=== PATIENT | female | born 1960 | race Caucasian/White ===

== ENCOUNTER → 2017-06-18 19:49 | Outpatient (CLI) | payer BC, SELFPAY | PROVIDERS: Family Provider Family Medicine; PCP Family Medicine; Visit Provider Obstetrics & Gynecology | DX: N89.8 Other specified noninflammatory disorders of vagina (principal) | CPT/HCPCS: 87070; 87077; 87205 ==

== ENCOUNTER → 2017-09-23 14:23 | Outpatient (CLI) | payer BC, SELFPAY ==
--- NOTE | 2017-09-23 14:27 | BI_ITS ---
MAMMOGRAPHY - BILATERAL SCREENING REASON FOR EXAM: Female, 56 years old. Routine annual screening examination. PERTINENT HISTORY: Non-contributory. TECHNIQUE: Digital bilateral breast crow (3D mammographic acquisition) in the CC and MLO projections. 2-D mediolateral oblique (MLO) and craniocaudad (CC) views of both breasts were obtained. CAD: Full Field Digital Mammography with Computer Added Detection was performed. COMPARISON: Comparison is made with prior study dated August 31, 2016 and August 14, 2015. FINDINGS: Breast Composition: The breasts are heterogeneously dense, which may obscure small masses. There are no dominant masses or suspicious calcifications. No other significant abnormalities are identified. There has been no significant change since the prior study. BI/SCREENING MAMM (CAD), BILAT IMPRESSION: Stable bilateral screening mammogram. Yearly follow-up mammogram recommended. (A) ASSESSMENT CATEGORY: BIRADS Category 1: Negative. A letter regarding these results will be sent to the patient by the facility within 30 days. Approximately 10% of breast cancers are not detected by mammography. A normal mammogram should not delay biopsy of a clinically suspicious abnormality. [id number] Electronically Signed: Ash Tenorio MD at 10:17 EDT Tel [phone], Service support ,
== END ==
PROVIDERS: Family Provider Family Medicine; PCP Family Medicine; Visit Provider Obstetrics & Gynecology
DX: Z12.31 Encounter for screening mammogram for malignant neoplasm of breast (principal)
CPT/HCPCS: 77063; 77067

== ENCOUNTER → 2018-08-17 16:42 | Outpatient (CLI) | payer BC, SELFPAY ==
[2018-08-17 08:06] VITALS: BMI 23.3
[2018-08-17 19:43] LABS: Chlamydia Trachomatis by PCR Negative (Negative); Neisserai gonorrhoeae by PCR Negative (Negative); Probe Check PASS; Sample Adequacy Control PASS; Specimen Processing Control PASS
== END ==
PROVIDERS: Family Provider Family Medicine; PCP Family Medicine; Referring Provider Nurse Practitioner Women's Health; Visit Provider Nurse Practitioner Women's Health
DX: Z11.3 Encounter for screening for infections with a predominantly sexual mode of transmission (principal)
CPT/HCPCS: 87491; 87591

== ENCOUNTER → 2018-08-18 10:52 | Outpatient (CLI) | payer BC, SELFPAY ==
[2018-08-17 08:06] VITALS: BMI 23.3
--- NOTE | 2018-08-18 10:53 | US_ITS ---
STUDY: ULTRASOUND OF THE FEMALE PELVIS - COMPLETE REASON FOR EXAM: Female, 57 years old. Postmenopausal bleeding LMP: Ablation April 2017 TECHNIQUE: TECHNICAL QUALITY: Adequate. COMPARISON: May 03, 2017 FINDINGS: The uterus is retroverted visualized small fibroid measuring 5.6 x 5.6 mm. There is a fundal fibroid measuring 1.4 x 1.2 x 1.2 cm. and is in a midline position. The uterus measures 6.9 x 5.1 x 4.2 cm. There is a Nabothian cyst of the cervix. The endometrium measures 10 mm in thickness, and is hyperechoic. There is no demonstrated endometrial mass. There is a I.U.D. - The patient does not have an I.U.D. The right ovary is visualized. The right ovary measures 1.9 x 1.3 x 1 point cm. There is no right ovarian cyst or ovarian mass. There is no visualized right adnexal mass or complex lesion. There is normal arterial and normal venous vascularity. The left ovary is not visualized. There is no fluid in the cul-de-sac. The transabdominal images show a distended bladder 705.6 Polycystic ovary disease: No. US/Pelvic (Non ) IMPRESSION: Postmenopausal bleeding. Greater than 6 mm endometrium is considered abnormal in a patient with postmenopausal bleeding. Consider endometrial hyperplasia. Small peripheral to the endometrium fundal fibroids. Retroverted uterus. Nabothian cysts. Electronically Signed: Mami Hernandez MD at 12:19 EDT Tel , Service support ,
--- NOTE | 2018-08-18 10:53 | US_ITS ---
STUDY: ULTRASOUND OF THE FEMALE PELVIS - COMPLETE REASON FOR EXAM: Female, 57 years old. Postmenopausal bleeding LMP: Ablation April 2017 TECHNIQUE: TECHNICAL QUALITY: Adequate. COMPARISON: May 03, 2017 FINDINGS: The uterus is retroverted visualized small fibroid measuring 5.6 x 5.6 mm. There is a fundal fibroid measuring 1.4 x 1.2 x 1.2 cm. and is in a midline position. The uterus measures 6.9 x 5.1 x 4.2 cm. There is a Nabothian cyst of the cervix. The endometrium measures 10 mm in thickness, and is hyperechoic. There is no demonstrated endometrial mass. There is a I.U.D. - The patient does not have an I.U.D. The right ovary is visualized. The right ovary measures 1.9 x 1.3 x 1 point cm. There is no right ovarian cyst or ovarian mass. There is no visualized right adnexal mass or complex lesion. There is normal arterial and normal venous vascularity. The left ovary is not visualized. There is no fluid in the cul-de-sac. The transabdominal images show a distended bladder 705.6 Polycystic ovary disease: No. US/Transvaginal Non- IMPRESSION: Postmenopausal bleeding. Greater than 6 mm endometrium is considered abnormal in a patient with postmenopausal bleeding. Consider endometrial hyperplasia. Small peripheral to the endometrium fundal fibroids. Retroverted uterus. Nabothian cysts. Electronically Signed: Mami Hernandez MD at 12:19 EDT Tel , Service support ,
== END ==
PROVIDERS: Family Provider Family Medicine; PCP Family Medicine; Referring Provider Nurse Practitioner Women's Health; Visit Provider Nurse Practitioner Women's Health
DX: N95.0 Postmenopausal bleeding (principal)
CPT/HCPCS: 76830; 76856; 93976

== ENCOUNTER → 2019-01-09 15:37 | Outpatient (CLI) | payer BC, SELFPAY ==
[2018-08-17 08:06] VITALS: BMI 23.3
--- NOTE | 2019-01-09 15:41 | RAD_ITS ---
STUDY: X-RAY - LEFT FOOT CLINICAL: Lateral sided foot pain for one week with worsening. TECHNIQUE: 3 view(s) of the foot. COMPARISON: None. FINDINGS: Normal talus, calcaneus, and tarsal bones. Normal visualized subtalar, talonavicular, calcaneocuboid, tarsal and tarsometatarsal articulations. Normal metatarsi. There are marginal osteophytes and joint space narrowing of the metatarsophalangeal joint of the great toe. Normal tibial and fibular sesamoid bones. Normal interphalangeal joint of the great toe. Normal phalanges of the great toe. Normal second through fifth metatarsophalangeal joints. Normal interphalangeal joints and phalanges of the lesser toes. The soft tissue structures are unremarkable. RAD/Foot min 3 Views IMPRESSION: Arthrosis of the first metatarsophalangeal joint. Electronically Signed: Antwan Smith MD at 12:14 EDT Tel , Service support ,
== END ==
PROVIDERS: Family Provider Family Medicine; PCP Family Medicine; Referring Provider Family Medicine; Visit Provider Family Medicine
DX: M79.672 Pain in left foot (principal)
CPT/HCPCS: 73630

== ENCOUNTER → 2019-01-10 09:48 | Outpatient (CLI) | payer BC, SELFPAY ==
[2018-08-17 08:06] VITALS: BMI 23.3
[2019-01-10 12:10] LABS: Absolute Lymphocyte Count 1.74 X10^3/uL (0.83-4.51); Absolute Neutrophil Count 2.5 X10^3/uL (2.0-7.7); Basophil# 0.03 X10^3/uL; Basophil% 0.6 % (0-1); Eosinophil# 0.05 X10^3/uL; Eosinophils% 1.1 % (0-5); Hematocrit 46.3 % (37-47); Hemoglobin 15.1 g/dL (12.0-15.0); Lymphocyte # 1.74 X10^3/ul (4.0); Lymphocyte % 37.5 % (19-41); Mean Corp Hgb Conc 32.6 g/dL (32-36); Mean Corpuscular Hgb 29.9 pg (27.0-32.0); Mean Corpuscular Volume 91.7 fL (81-99); Mean Platelet Vol. 9.3 fl (6.2-12.0); Monocyte# 0.36 X10^3/uL; Monocyte% 7.8 % (0-10); NRBC Flagged by Analyzer 0 % (0-5); Neutrophil # 2.45 X10^3/uL (2.7-7.7); Neutrophil % 52.8 % (47-70); Platelet Count 219 K/mm3 (150-450); RBC Distribution Width CV 12.6 % (11.6-14.6); RBC Distribution Width SD 42.2 fl (35.1-43.9); Red Blood Count 5.05 M/mm3 (4.2-5.4); White Blood Count 4.6 K/mm3 (4.4-11.0)
[2019-01-10 12:51] LABS: Anion Gap 6 (5-15); BUN 10 mg/dL (7-18); Calcium,Total 8.9 mg/dL (8.5-10.1); Chloride 106 mmol/L (98-107); Cholesterol 261 mg/dL (200); Creatinine, Serum 0.77 mg/dL (0.55-1.02); EST Glomerular Filtration Rate 83 mL/min (>60); Est Glom Filt Rate - Afr Amer 100 mL/min (>60); Glucose 81 mg/dL (74-106); High Density Lipoprotein 75 mg/dL; Potassium 4.2 mmol/L (3.5-5.1); Sodium Level 139 mmol/L (136-145); Thyroid Stim Hormone (TSH) 3.18 uIU/mL (0.358-3.74); Triglycerides 129 mg/dL; Very Low Density Lipoprotein 26 mg/dL (5-40)
== END ==
PROVIDERS: Family Provider Family Medicine; PCP Family Medicine; Referring Provider Nurse Practitioner Family; Visit Provider Nurse Practitioner Family
DX: Z00.00 Encounter for general adult medical examination without abnormal findings (principal); E03.9 Hypothyroidism, unspecified; R53.83 Other fatigue; Z13.220 Encounter for screening for lipoid disorders
CPT/HCPCS: 36415; 80048; 80061; 84443; 85025

== ENCOUNTER → 2019-03-27 12:35 | Outpatient (CLI) | payer BC, SELFPAY ==
[2018-08-17 08:06] VITALS: BMI 23.3
[2019-03-27 14:14] LABS: Hemoglobin 15.3 g/dL (12.0-15.0); Mean Corp Hgb Conc 32.6 g/dL (32-36); Mean Corpuscular Hgb 30.2 pg (27.0-32.0); Mean Corpuscular Volume 92.7 fL (81-99); Mean Platelet Vol. 9.3 fl (6.2-12.0); Platelet Count 235 K/mm3 (150-450); RBC Distribution Width CV 12.3 % (11.6-14.6); RBC Distribution Width SD 42.2 fl (35.1-43.9); Red Blood Count 5.07 M/mm3 (4.2-5.4); White Blood Count 5.6 K/mm3 (4.4-11.0)
[2019-03-27 14:53] LABS: Thyroid Stim Hormone (TSH) 2.21 uIU/mL (0.358-3.74)
== END ==
PROVIDERS: Family Provider Family Medicine; PCP Family Medicine; Referring Provider Family Medicine; Visit Provider Family Medicine
DX: E03.9 Hypothyroidism, unspecified (principal); M54.2 Cervicalgia
CPT/HCPCS: 36415; 84439; 84443; 85027

== ENCOUNTER → 2019-04-14 15:07 | Outpatient (CLI) | payer BC, SELFPAY ==
[2018-08-17 08:06] VITALS: BMI 23.3
--- NOTE | 2019-04-14 15:18 | BI_ITS ---
MAMMOGRAPHY - BILATERAL SCREENING 3-D TOMOSYNTHESIS REASON FOR EXAM: Female, 58 years old. PERTINENT HISTORY: No significant family history. TECHNIQUE: 2-D mammograms and 3-D Tomosynthesis of the breast (s) were performed. CAD was performed. COMPARISON: September 23, 2017 FINDINGS: The breast composition is heterogeneous in appearance which may obscure tiny lesions. No dense spiculated masses or suspicious microcalcifications are identified. No architectural distortion is identified. There is no skin thickening or retraction. There has been no significant change since the prior study of September 23, 2017 BI/SCREEN MAMM (CAD) W/MEDHAT BILAT IMPRESSION: No mammographic signs of malignancy. Routine yearly mammograms recommended. ASSESSMENT CATEGORY: BIRADS Category 1: Negative. A letter regarding these results will be sent to the patient by the facility within 30 days. FOLLOW UP RECOMMENDATION: Yearly follow up mammogram recommended. (A) Approximately 10% of breast cancers are not detected by mammography. A normal mammogram should not delay biopsy of a clinically suspicious abnormality. Electronically Signed: Patricio Rivers, at 8:02 EST Tel , Service support ,
== END ==
PROVIDERS: Family Provider Family Medicine; PCP Family Medicine; Referring Provider Obstetrics & Gynecology; Visit Provider Obstetrics & Gynecology
DX: Z12.31 Encounter for screening mammogram for malignant neoplasm of breast (principal)
CPT/HCPCS: 77063; 77067

== ENCOUNTER → 2019-07-27 15:43 | Outpatient (CLI) | payer BC, SELFPAY ==
[2019-07-27 13:20] VITALS: BMI 23.3
[2019-08-04 11:17] LABS: HPV APTIMA, High Risk Negative (Negative)
== END ==
PROVIDERS: PCP Family Medicine; Referring Provider Nurse Practitioner Women's Health; Visit Provider Nurse Practitioner Women's Health
DX: Z12.4 Encounter for screening for malignant neoplasm of cervix (principal)
CPT/HCPCS: 87624; 88175; G0145

== ENCOUNTER → 2020-02-01 08:18 | Outpatient (CLI) | payer BC, SELFPAY ==
[2019-07-27 13:20] VITALS: BMI 23.3
[2020-02-01 10:15] LABS: Anion Gap 6 (5-15); BUN 14 mg/dL (7-18); BUN/Creat Ratio 19.2 RATIO (10-20); Calcium,Total 8.8 mg/dL (8.5-10.1); Chloride 106 mmol/L (98-107); Cholesterol 303 mg/dL (200); Creatinine, Serum 0.73 mg/dL (0.55-1.02); EST Glomerular Filtration Rate 87 mL/min (>60); Est Glom Filt Rate - Afr Amer 105 mL/min (>60); Glucose 94 mg/dL (74-106); High Density Lipoprotein 74 mg/dL; Potassium 3.6 mmol/L (3.5-5.1); Sodium Level 139 mmol/L (136-145); T4 Free Direct 1.47 ng/dL (0.76-1.46); Thyroid Stim Hormone (TSH) 4.04 uIU/mL (0.358-3.74); Triglycerides 159 mg/dL; Very Low Density Lipoprotein 32 mg/dL (5-40)
== END ==
PROVIDERS: PCP Family Medicine; Referring Provider Family Medicine; Visit Provider Family Medicine
DX: E03.9 Hypothyroidism, unspecified (principal); Z13.1 Encounter for screening for diabetes mellitus; Z13.220 Encounter for screening for lipoid disorders
CPT/HCPCS: 36415; 80048; 80061; 84439; 84443

== ENCOUNTER 2020-02-21 10:00 | Outpatient (RCR) | payer BC, SELFPAY ==
[2019-07-27 13:20] VITALS: BMI 23.3
--- NOTE | 2019-12-21 18:27 | HP.PTEVAL ---
Patient's Visit Information KODY TELLEZ is a 59 year old F referred to Physical Therapy by Dr. Robert Palma MD with a diagnosis of BPPV. Date of Evaluation: 12/21/19 Physical Therapist: Toby Dawkins, AJAYT, OCS, CSCS - Visit Plan Frequency: 1-2x /Week Duration: 2-4 Weeks Plan: weekly as needed x 2-4 for positional treatments and reintegration of positions. - Subjective Had dizzyness for a long time. Gets up out of bed and sometimes passes out 2x/in 2003. Gets motion sick easily. Had an episode in May when she was doing floor work exercising in different positions and was dizzy/sick and could not recover. was sick for 3 days straight. Immediately things were spinning. Went to doctor 2 days later and got eyes and ears checked. Was hard to walk going in and spinning. He tried Hallpike ann ad she vomitted. Gave meclizine and sent home. Got better over the next two days. Got off meclizine. Then she was fine until a few days ago and sat up from lying down adn got dizzy ...went upstairs and took meclizine and spun the first day and then gradually getting better. Gradually got better over the weekend. Wednesday was fine and more normal. Last dizzyness was Wednesday and it gives a MARTINEZ. Sleeping OK now. 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 This week has been katlyn except avoiding floor exercises for pilates. - Objective Walks normal and trasnitions normal today. Cervical AROM WNL and without pain. UE AROM WFL. Pt is nervous about today and high anxiety. - L hallpike ann. + R hallpike for mild dizzyness and up torsional nystagmus of 5 seconds, treated with Julia adn then gone. Slightly nauseous after session. - Balance Scores Functional Gait Assessment Score: 30 % Disability: 0 - Goals Goal 1:: abolish dizzzyness x 5 days Goal Time Frame: 4-6 Weeks Goal 2:: Head off edge of table and yoga/pilates positoons without dizzyness and confidentally. Goal Time Frame: 4-6 Weeks - Rehabilitation Potential Physical Therapy Diagnosis: BPPV Rehabilitation Potential: Good - Anticipated Interventions Patient/Client Instruction: Educate patient on: Condition, Plan of Care For the Purpose of:: To decrease pain, To improve muscle performance and motor function, To increase tolerance to activity/condition/position Therapeutic Exercise to Include: Active ROM Comment: positional treatments For the Purpose of:: To increase tolerance to activity/condition/position Thank you for the opportunity to evaluate your patient. For Medicare and Medicare HMO plans, please review the plan of care and approve it. It will need to be FAXED BACK to us at [phone] for Medicare purposes. For Medicare only, by signing this I certify the plan of care. Please let me know if there are questions or concerns regarding this plan of care. Physician Signature: Date:
--- NOTE | 2020-02-13 09:57 | HP.PT.NRP ---
KODY TELLEZ was seen in my office for initial evaluation on 12/21/19. The following Plan of Care was established for this patient: Initial Frequency: 1-2x /Week Initial Duration: 2-4 Weeks Patient/Client Instruction: Educate patient on: Condition, Plan of Care For the Purpose of:: To decrease pain, To improve muscle performance and motor function, To increase tolerance to activity/condition/position Therapeutic Exercise to Include: Active ROM For the Purpose of:: To increase tolerance to activity/condition/position This patient was last seen in our office 12/21/19. Pertinent comments regarding their Physical therapy will appear below: Pt seen one visit for BPPV treatment. She was to f/u weekly to ensure progress but neglected to schedule or attend. At this point, it has been over 6 weeks adn I will discontinue due to nonattendance. At this point I will be discontinuing this patient from physical therapy. I would be happy to see this patient again in the future if found appropriate by the physician. Thank you! Toby Dawkins, DPT, OCS, CSCS
--- NOTE | 2020-02-16 10:01 | HP.PTREVAL_ITS ---
Dr. Robert Palma MD, It has been my pleasure to treat KODY TELLEZ over the last 2 visits for BPPV. Please see the progress note below for an update on the physical therapy plan of care! Subjective: Month of December and most of January was good and did not avoid any activitiy. 100%. One week ago got some goofiness rolling in bed. Yesterday was doing floor ex lying on back and spun for 15 minutes or so. Took medicine a felt a little better. Has slight MARTINEZ today but no dizzyness. Objective/Function: Pt returns with dizzyness yesterday after being good for a month or more. + L hallpike ann and nauseous. Treated with Clarissa Dumont today and instruct in BD. Based on history and findings clinically today, she is appropri ate to reopen her current chart as she was discharged after not attending. same goals and POC as previously hopefully with compliance of attendance this time. Fair prognosis Plan Plan: weekly as needed x 2-4 for positional treatments and reintegration of positions. Goals Goal 1:: abolish dizzzyness x 5 days Goal Time Frame: 4-6 Weeks Goal 2:: Head off edge of table and yoga/pilates positoons without dizzyness and confidentally. Goal Time Frame: 4-6 Weeks Anticipated Interventions Patient/Client Instruction: Educate patient on: Condition, Plan of Care For the Purpose of:: To decrease pain, To improve muscle performance and motor function, To increase tolerance to activity/condition/position Therapeutic Exercise to Include: Active ROM Comment: positional treatments For the Purpose of:: To increase tolerance to activity/condition/position Please do not hesitate to contact me at [phone] by phone or if you have questions or concerns regarding this new plan of care! Sincerely, Toby Dawkins, DPT, OCS, CSCS
== END 2020-02-21 19:00 | disposition home or self-care (01) ==
LOC: PT 10:00
PROVIDERS: PCP Family Medicine; Referring Provider Family Medicine; Visit Provider Family Medicine
DX: H81.10 Benign paroxysmal vertigo, unspecified ear (principal)
CPT/HCPCS: 97161; 97530

== ENCOUNTER → 2020-03-15 | Outpatient (CLI) | payer BC, SELFPAY ==
[2019-07-27 13:20] VITALS: BMI 23.3
== END | disposition home or self-care (01) ==
PROVIDERS: PCP Family Medicine; Visit Provider Family Medicine
DX: Z20.828 Contact with and (suspected) exposure to other viral communicable diseases (principal)
CPT/HCPCS: 87635; U0003

== ENCOUNTER → 2020-03-21 | Outpatient (CLI) | payer BC, SELFPAY ==
[2019-07-27 13:20] VITALS: BMI 23.3
== END | disposition home or self-care (01) ==
LOC: LABSPEC 17:07
PROVIDERS: PCP Family Medicine; Referring Provider Family Medicine; Visit Provider Family Medicine
DX: U07.1 COVID-19 (principal)
CPT/HCPCS: 87635; U0003

== ENCOUNTER → 2020-04-19 09:15 | Outpatient (CLI) | payer BC, SELFPAY ==
[2019-07-27 13:20] VITALS: BMI 23.3
--- NOTE | 2020-04-19 09:17 | RAD_ITS ---
EXAM DESCRIPTION: PA and lateral CHEST CLINICAL HISTORY: 59 years Female, COUGH COUGH COMPARISON: None FINDINGS: The thorax is intact. The heart and mediastinum appear to be within normal limits. The lungs appear to be well areated without evidence of pneumonic consolidation or pleural effusion. RAD/Chest PA and Lateral IMPRESSION: Normal PA and lateral chest Electronically Signed: Robert Simmons, at 14:39 EST Tel , Service support ,
[2020-04-19 11:35] LABS: AST(SGOT) 21 U/L (15-37); Alanine Aminotransfer ALT/SGPT 24 U/L (13-56); Albumin, Serum 3.3 g/dL (3.2-5.0); Alkaline Phosphatase 74 U/L (45-117); Bilirubin, Direct 0.15 mg/dL (0.00-0.30); Cholesterol 306 mg/dL (200); Free T3 2.2 pg/mL (2.18-3.98); Globulin 4.1 g/dL (2.2-4.2); High Density Lipoprotein 76 mg/dL; Protein, Total 7.4 g/dL (6.4-8.2); T4 Free Direct 1.35 ng/dL (0.76-1.46); Thyroid Stim Hormone (TSH) 3.13 uIU/mL (0.358-3.74); Triglycerides 145 mg/dL; Very Low Density Lipoprotein 29 mg/dL (5-40)
== END ==
PROVIDERS: PCP Family Medicine; Referring Provider Family Medicine; Visit Provider Family Medicine
DX: E03.9 Hypothyroidism, unspecified (principal); E78.5 Hyperlipidemia, unspecified; R05 Cough
CPT/HCPCS: 36415; 71046; 80061; 80076; 84439; 84443; 84481

== ENCOUNTER → 2020-06-12 08:21 | Outpatient (CLI) | payer BC, SELFPAY ==
[2019-07-27 13:20] VITALS: BMI 23.3
[2020-06-12 10:20] LABS: Cholesterol 279 mg/dL (200); High Density Lipoprotein 77 mg/dL; Triglycerides 124 mg/dL; Very Low Density Lipoprotein 25 mg/dL (5-40)
== END ==
PROVIDERS: PCP Family Medicine; Referring Provider Family Medicine; Visit Provider Family Medicine
DX: E78.5 Hyperlipidemia, unspecified (principal)
CPT/HCPCS: 36415; 80061

== ENCOUNTER → 2020-06-20 07:55 | Outpatient (CLI) | payer BC, SELFPAY ==
[2019-07-27 13:20] VITALS: BMI 23.3
[2020-06-22 14:08] LABS: CHOLESTEROL TOTAL 273 mg/dL (100-199); HDL-C 70 mg/dL (>39); HDL-P TOTAL 40.6 umol/L (>=30.5); SMALL LDL-P 357 nmol/L (<=527); TRIGLYCERIDES 172 mg/dL (0-149)
[2020-06-23 07:11] LABS: INSULIN RESISTANCE SCORE 39 (<=45); LDL SIZE 21.8 nm (>20.5); LDL-C (NIH CALC) 172 mg/dL (0-99); LDL-P 1940 nmol/L (<1000)
== END ==
PROVIDERS: PCP Family Medicine; Referring Provider Family Medicine; Visit Provider Family Medicine
DX: E78.5 Hyperlipidemia, unspecified (principal)
CPT/HCPCS: 80061; 83704

== ENCOUNTER → 2020-07-29 14:32 | Outpatient (CLI) | payer BC, SELFPAY ==
[2019-07-27 13:20] VITALS: BMI 23.3
--- NOTE | 2020-07-29 14:34 | BI_ITS ---
MAMMOGRAPHY - BILATERAL SCREENING REASON FOR EXAM: Female, 59 years old. Routine annual screening examination. PERTINENT HISTORY: no fam hx of breast ca quit prog cream 04/2017 no sx current hypothyroid meds TECHNIQUE: Digital bilateral breast medhat (3D mammographic acquisition) in the CC and MLO projections. 2-D mediolateral oblique (MLO) and craniocaudad (CC) views of both breasts were obtained. CAD: Full Field Digital Mammography with Computer Added Detection was performed. COMPARISON: 04/14/2019 and 09/23/2017 FINDINGS: Breast Composition: The breasts are heterogeneously dense, which may obscure small masses. There are no dominant masses or suspicious calcifications. No other significant abnormalities are identified. BI/SCRN MAMM (CAD)W/MEDHAT BILAT IMPRESSION: Stable bilateral screening mammogram. Yearly follow-up mammogram recommended. (A) ASSESSMENT CATEGORY: BIRADS Category 2: Benign. A letter regarding these results will be sent to the patient by the facility within 30 days. Approximately 10% of breast cancers are not detected by mammography. A normal mammogram should not delay biopsy of a clinically suspicious abnormality. [id number] Electronically Signed: Wanda Dc MD at 16:34 EST Tel , Service support ,
== END ==
PROVIDERS: PCP Family Medicine; Referring Provider Nurse Practitioner Women's Health; Visit Provider Nurse Practitioner Women's Health
DX: Z12.31 Encounter for screening mammogram for malignant neoplasm of breast (principal)
CPT/HCPCS: 77063; 77067

== ENCOUNTER → 2021-04-03 15:21 | Outpatient (CLI) | payer BC, SELFPAY ==
[2021-04-03 17:43] LABS: Erythrocyte Sedimentation Rate 14 mm/hr (0-30)
[2021-04-03 17:44] LABS: Absolute Lymphocyte Count 2.51 X10^3/uL (0.83-4.51); Absolute Neutrophil Count 3.1 X10^3/uL (2.0-7.7); Basophil# 0.03 X10^3/uL; Basophil% 0.5 % (0-1); Eosinophil# 0.06 X10^3/uL; Hematocrit 46.4 % (37-47); Hemoglobin 15.5 g/dL (12.0-15.0); Lymphocyte # 2.51 X10^3/ul (0.83-4.51); Lymphocyte % 41.1 % (19-41); Mean Corp Hgb Conc 33.4 g/dL (32-36); Mean Corpuscular Hgb 29.7 pg (27.0-32.0); Mean Corpuscular Volume 88.9 fL (81-99); Mean Platelet Vol. 10.1 fl (6.2-12.0); Monocyte# 0.38 X10^3/uL; Monocyte% 6.2 % (0-10); NRBC Flagged by Analyzer 0 % (0-5); Neutrophil # 3.12 X10^3/uL (2.7-7.7); Platelet Count 266 K/mm3 (150-450); RBC Distribution Width CV 12.3 % (11.6-14.6); Red Blood Count 5.22 M/mm3 (4.2-5.4); White Blood Count 6.1 K/mm3 (4.4-11.0)
[2021-04-03 18:01] LABS: ALB/GLOB Ratio 0.8 RATIO (0.9-2.4); AST(SGOT) 24 U/L (15-37); Alanine Aminotransfer ALT/SGPT 26 U/L (13-56); Albumin, Serum 3.3 g/dL (3.2-5.0); Alkaline Phosphatase 64 U/L (45-117); Anion Gap 4 (5-15); BUN 18 mg/dL (7-18); BUN/Creat Ratio 23.7 RATIO (10-20); Calcium,Total 9.2 mg/dL (8.5-10.1); Chloride 102 mmol/L (98-107); Creatinine, Serum 0.76 mg/dL (0.55-1.02); EST Glomerular Filtration Rate 83 mL/min (>60); Est Glom Filt Rate - Afr Amer 100 mL/min (>60); Glucose 84 mg/dL (74-106); Iron 60 ug/dL (50-170); Potassium 4.1 mmol/L (3.5-5.1); Protein, Total 7.3 g/dL (6.4-8.2); Sodium Level 137 mmol/L (136-145); T4 Free Direct 1.29 ng/dL (0.76-1.46); Thyroid Stim Hormone (TSH) 2.81 uIU/mL (0.358-3.74)
[2021-04-03 18:18] LABS: Vitamin B12 414 pg/mL (211-911); Vitamin D,25 Hydroxy 31.3 ng/mL
[2021-04-07 08:07] LABS: ANTINUCLEAR ANTIBODIES DIRECT Negative (Negative)
== END ==
PROVIDERS: PCP Family Medicine; Referring Provider Family Medicine; Visit Provider Family Medicine
DX: E03.9 Hypothyroidism, unspecified (principal); R53.83 Other fatigue; L65.9 Nonscarring hair loss, unspecified
CPT/HCPCS: 36415; 80053; 82306; 82533; 82607; 83540; 84439; 84443; 85025; 85652; 86038; 87635; U0005; U0003

== ENCOUNTER 2021-07-17 07:44 | Outpatient (CLI) | payer BC, SELFPAY ==
[2021-07-17 10:36] LABS: Anion Gap 5 (5-15); BUN 12 mg/dL (7-18); BUN/Creat Ratio 16.1 RATIO (10-20); Calcium,Total 8.8 mg/dL (8.5-10.1); Chloride 107 mmol/L (98-107); Cholesterol 286 mg/dL (200); Creatinine, Serum 0.74 mg/dL (0.55-1.02); EST Glomerular Filtration Rate 85 mL/min (>60); Est Glom Filt Rate - Afr Amer 103 mL/min (>60); Glucose 91 mg/dL (74-106); High Density Lipoprotein 81 mg/dL; Potassium 4.3 mmol/L (3.5-5.1); Sodium Level 137 mmol/L (136-145); T4 Free Direct 1.46 ng/dL (0.76-1.46); Thyroid Stim Hormone (TSH) 2.39 uIU/mL (0.358-3.74); Triglycerides 76 mg/dL; Very Low Density Lipoprotein 15 mg/dL (5-40)
== END 2021-07-17 23:59 | disposition home or self-care (01) ==
LOC: MTLAB 07:45
PROVIDERS: PCP Family Medicine; Referring Provider Family Medicine; Visit Provider Family Medicine
DX: E78.5 Hyperlipidemia, unspecified (principal); E03.9 Hypothyroidism, unspecified; Z13.1 Encounter for screening for diabetes mellitus
CPT/HCPCS: 36415; 80048; 80061; 84439; 84443

== ENCOUNTER 2021-07-31 14:42 | Outpatient (CLI) | payer BC, SELFPAY ==
[2020-07-29 15:07] VITALS: BMI 24.5
--- NOTE | 2021-07-31 14:45 | BI_ITS ---
MAMMOGRAPHY - BILATERAL SCREENING REASON FOR EXAM: Female, 60 years old. Routine annual screening examination. PERTINENT HISTORY: Non-contributory. TECHNIQUE: Digital bilateral breast medhat (3D mammographic acquisition) in the CC and MLO projections. 2-D mediolateral oblique (MLO) and craniocaudad (CC) views of both breasts were obtained. CAD: Full Field Digital Mammography with Computer Added Detection was performed. COMPARISON: Comparison is made with prior study dated 07/29/2020 and 04/14/2019. FINDINGS: Breast Composition: The breasts are heterogeneously dense, which may obscure small masses. There are no dominant masses or suspicious calcifications. Stable small benign-appearing bilateral axillary nodes. No other significant abnormalities are identified. There has been no significant change since the prior study. BI/SCRN MAMM (CAD)W/MEDHAT BILAT IMPRESSION: Stable bilateral screening mammogram. Yearly follow-up mammogram recommended. (A) ASSESSMENT CATEGORY: BIRADS Category 2: Benign. A letter regarding these results will be sent to the patient by the facility within 30 days. Approximately 10% of breast cancers are not detected by mammography. A normal mammogram should not delay biopsy of a clinically suspicious abnormality. [id number] Electronically Signed: Ash Tenorio MD at 15:35 EST ,
== END 2021-07-31 23:59 | disposition home or self-care (01) ==
LOC: OPBI 14:43
PROVIDERS: PCP Family Medicine; Referring Provider Nurse Practitioner Women's Health; Visit Provider Nurse Practitioner Women's Health
DX: Z12.31 Encounter for screening mammogram for malignant neoplasm of breast (principal)
CPT/HCPCS: 77063; 77067

== ENCOUNTER → 2021-12-08 | Outpatient (CLI) | payer BC, SELFPAY ==
--- NOTE | 2021-12-08 09:57 | RAD_ITS ---
STUDY: X-RAY - RIGHT ANKLE REASON FOR EXAM: Female, 60 years old. Lateral pain and swelling following a recent fall. TECHNIQUE: 3 view(s) of the ankle. COMPARISON: None. FINDINGS: Normal visualized distal tibia and fibula. Normal medial and lateral malleoli. Normal tibiotalar articulation and ankle mortise. Normal visualized talus and calcaneus. The visualized subtalar, talonavicular, calcaneocuboid and tarsal articulations are normal. Lateral soft tissue swelling. RAD/Ankle min 3 Views IMPRESSION: Lateral soft tissue swelling. Electronically Signed: Ash Tenorio MD at 12:56 EDT ,
--- NOTE | 2021-12-08 09:57 | RAD_ITS ---
STUDY: X-RAY - RIGHT FOOT CLINICAL: Female, 60 years old. Pain and swelling following an injury. TECHNIQUE: 3 view(s) of the foot. COMPARISON: 3 FINDINGS: Questionable avulsion fracture along the dorsal aspect of the talus. Normal visualized subtalar, talonavicular, calcaneocuboid, tarsal and tarsometatarsal articulations. Normal metatarsi. There is degenerative arthrosis of the metatarsophalangeal joint of the hallux with a hallux valgus deformity. Normal tibial and fibular sesamoid bones. Normal interphalangeal joint of the great toe. Normal phalanges of the great toe. Normal second through fifth metatarsophalangeal joints. Normal interphalangeal joints and phalanges of the lesser toes. Dorsal soft tissue swelling. RAD/Foot min 3 Views IMPRESSION: Questionable tiny avulsion fracture along the dorsal aspect of the talus. Soft tissue swelling. Electronically Signed: Ash Tenorio MD at 12:58 EDT ,
== END | disposition home or self-care (01) ==
PROVIDERS: PCP Family Medicine; Referring Provider Family Medicine; Visit Provider Family Medicine
DX: M25.571 Pain in right ankle and joints of right foot (principal); M25.572 Pain in left ankle and joints of left foot
CPT/HCPCS: 73610; 73630

== ENCOUNTER → 2022-08-03 | Outpatient (CLI) | payer OTHER, SELFPAY ==
--- NOTE | 2022-08-03 13:43 | BI_ITS ---
MAMMOGRAPHY - BILATERAL SCREENING 3-D TOMOSYNTHESIS REASON FOR EXAM: Female, 61 years old. Routine screening PERTINENT HISTORY: No significant family history. TECHNIQUE: 2-D mammograms and 3-D Tomosynthesis of the breast (s) were performed. CAD was performed. COMPARISON: 07/29/2020 FINDINGS: The breast composition is composed of scattered fibroglandular density. Scattered benign calcifications are seen. No dense spiculated masses or suspicious microcalcifications are identified. No architectural distortion is identified. There is no skin thickening or retraction. There has been no significant change since the prior study. BI/SCRN MAMM (CAD)W/MEDHAT BILAT IMPRESSION: No mammographic signs of malignancy. Routine yearly mammograms recommended. ASSESSMENT CATEGORY: BIRADS Category 1: Negative. A letter regarding these results will be sent to the patient by the facility within 30 days. FOLLOW UP RECOMMENDATION: Yearly follow up mammogram recommended. (A) Approximately 10% of breast cancers are not detected by mammography. A normal mammogram should not delay biopsy of a clinically suspicious abnormality. Electronically Signed: Aniket Kumar MD at 14:32 EDT ,
[2022-08-12 12:55] LABS: HPV APTIMA, High Risk Negative (Negative)
== END | disposition home or self-care (01) ==
PROVIDERS: PCP Family Medicine; Visit Provider Obstetrics & Gynecology
DX: Z12.31 Encounter for screening mammogram for malignant neoplasm of breast (principal)
CPT/HCPCS: 77063; 77067; 87624; 88175; G0145

== ENCOUNTER → 2022-08-18 | Outpatient (CLI) | payer OTHER, SELFPAY ==
--- NOTE | 2022-08-18 12:51 | RAD_ITS ---
EXAM: XR RIGHT HIP WITH PELVIS WHEN PERFORMED, 1 VIEW CLINICAL INDICATION: PAIN TECHNIQUE: Frontal view of the right hip with pelvis when performed. This report was created using [employer] report generation technology. COMPARISON: None. FINDINGS: BONES/JOINTS: Mild degenerative changes involving the bilateral hip joints. Mild degenerative changes pubic symphysis. Sacroiliac joint is unremarkable. No acute or healing fracture or malalignment. No other unusual lytic or sclerotic lesions of bone. SOFT TISSUES: Tiny phlebolith of the right inferior pelvis. No soft tissue swelling or gas. VASCULATURE: Tiny vascular calcifications in the pelvis. RAD/HIP, UNI W/ Pelvis 2-3 Views IMPRESSION: 1. Mild degenerative changes at the right hip joint. 2. No acute or healing fracture or malalignment. Electronically Signed: Jamin Morales MD at 4:49 EDT ,
--- NOTE | 2022-08-18 12:51 | RAD_ITS ---
STUDY: X-RAY - LUMBOSACRAL SPINE REASON FOR EXAM: Female, 61 years old. Pain. TECHNIQUE: 6 view(s) of the lumbosacral spine, including lateral flexion and extension views, were obtained. COMPARISON: December 2016. FINDINGS: Mild osteopenia. Normal lumbar lordosis. There is no substantial scoliosis. There is normal alignment of the vertebrae. Limited flexion and extension with no abnormal motion. Diffuse facet sclerosis. Slight progression of the intervertebral disc space narrowing at L2-3 and L3-4 with osteophytes. Normal bilateral sacral ala, sacroiliac joints, and visualized sacrum. Normal visualized soft tissue structures. RAD/L/S Spine w Bend Min 6 Vw IMPRESSION: Osteopenia with limited flexion and extension and no abnormal motion. Slight progression of the lower lumbar spondylosis. No acute abnormality, evidence of erosive changes/fusion. Electronically Signed: Wojciech Magallon, at 13:29 EDT ,
== END | disposition home or self-care (01) ==
LOC: MTRAD 12:50
PROVIDERS: PCP Family Medicine; Referring Provider Family Medicine; Visit Provider Family Medicine
DX: M25.551 Pain in right hip (principal)
CPT/HCPCS: 72114; 73502

== ENCOUNTER → 2023-02-18 | Outpatient (CLI) | payer OTHER, SELFPAY ==
[2023-02-18 15:37] LABS: Anion Gap 5 (5-15); BUN 11 mg/dL (7-18); Chloride 103 mmol/L (98-107); Creatinine, Serum 0.78 mg/dL (0.55-1.02); EST Glomerular Filtration Rate 79 mL/min (>60); Est Glom Filt Rate - Afr Amer 96 mL/min (>60); Glucose 82 mg/dL (74-106); Potassium 3.9 mmol/L (3.5-5.1); Sodium Level 136 mmol/L (136-145); T4 Free Direct 1.27 ng/dL (0.76-1.46); Thyroid Stim Hormone (TSH) 6.53 uIU/mL (0.358-3.74)
== END | disposition home or self-care (01) ==
PROVIDERS: PCP Family Medicine; Referring Provider Family Medicine; Visit Provider Family Medicine
DX: E03.9 Hypothyroidism, unspecified (principal); R63.5 Abnormal weight gain
CPT/HCPCS: 36415; 80048; 84439; 84443

== ENCOUNTER → 2023-11-09 | Outpatient (CLI) | payer OTHER, SELFPAY ==
--- NOTE | 2023-11-09 11:15 | RAD_ITS ---
STUDY: X-RAY - LUMBAR SPINE REASON FOR EXAM: Female, 62 years old. LUMBAGO TECHNIQUE: 4 view(s) of the lumbar spine were obtained. COMPARISON: Lumbar spine x-ray dated August 18, 2022 FINDINGS: Normal lumbar lordosis. Minimal levoscoliosis is present. There is a normal alignment of the vertebrae. The L3-L4 disc space is moderately narrowed. Mild disc space narrowing is present at L2-L3 and L4-L5. Mild multilevel endplate spurring is also present. No visualized fractures or compression deformities. The soft tissue structures are unremarkable. RAD/L/S Spine Min 4 Views IMPRESSION: Degenerative changes of the spine, as detailed above. Electronically Signed: Ezekiel Brand MD at 13:07 EDT ,
== END | disposition home or self-care (01) ==
LOC: MTRAD 11:04
PROVIDERS: PCP Family Medicine; Referring Provider Family Medicine; Visit Provider Family Medicine
DX: M54.50 Low back pain, unspecified (principal)
CPT/HCPCS: 72110

== ENCOUNTER → 2023-11-19 | Outpatient (CLI) | payer OTHER, SELFPAY ==
[2023-11-19 11:16] LABS: Anion Gap 6 (5-15); BUN 16 mg/dL (7-18); BUN/Creat Ratio 19.6 RATIO (10-20); Calcium,Total 9.1 mg/dL (8.5-10.1); Chloride 105 mmol/L (98-107); Cholesterol 302 mg/dL (200); Creatinine, Serum 0.82 mg/dL (0.55-1.02); EST Glomerular Filtration Rate 75 mL/min (>60); Est Glom Filt Rate - Afr Amer 91 mL/min (>60); Glucose 99 mg/dL (74-106); High Density Lipoprotein 66 mg/dL; Potassium 3.8 mmol/L (3.5-5.1); Sodium Level 137 mmol/L (136-145); T4 Free Direct 1.45 ng/dL (0.76-1.46); Thyroid Stim Hormone (TSH) 0.75 uIU/mL (0.358-3.74); Triglycerides 222 mg/dL; Very Low Density Lipoprotein 44 mg/dL (5-40)
== END | disposition home or self-care (01) ==
LOC: MTLAB 08:09
PROVIDERS: PCP Family Medicine; Referring Provider Family Medicine; Visit Provider Family Medicine
DX: Z13.220 Encounter for screening for lipoid disorders (principal); E03.9 Hypothyroidism, unspecified; Z13.1 Encounter for screening for diabetes mellitus
CPT/HCPCS: 36415; 80048; 80061; 84439; 84443

== ENCOUNTER → 2025-02-08 | Outpatient (CLI) | payer OTHER, SELFPAY ==
--- OUTSIDE RECORDS SUMMARY | 2025-02-08 09:13 | XMS RPT_ITS | CCD ---
Author Organization [facility] Inform ion Partnership [facility] Care Team Providers Care Lining Finisher Name Role Phone Dr. Addi Wright Primary Care Provider Dr. Addi Wright Referring Provider Dr. Michelle Perkins Attending Provider Farzaneh Wright Referring Unavailable Farzaneh Wright Attending Unavailable Kyle, Farzaneh Primary Care Unavailable Farzaneh Wright Referring Unavailable Farzaneh Wright Attending Unavailable Kyle, Farzaneh Primary Care Unavailable Kyle, Farzaneh Primary Care Unavailable Kyle, Farzaneh Referring Unavailable Farzaneh Wright Attending Unavailable Kyle, Farzaneh Primary Care Unavailable Kyle, Farzaneh Referring Unavailable Shelly Anand Attending Unavailable Kyle, Juliusophmanolo Primary Care Unavailable Kyle, Farzaneh Referring Unavailable Iam MANAGER CREDIT COLLECTIONS, Tessy Attending Unavailable KYLE, FARZANEH VIRK Referring Unavail able FARZANEH WRIGHT Primary Care Unavail Farzaneh Franco MD Primary Care Provide r Allergies Allergy Classification Reported Allergen(s) Allergy Type Date of Onset Reaction(s) Facility (3 sources) traMADol Drug Allergy 1 Vomiting [facility] (1 source) traMADol Drug Allergy 4 [facility] Repository (1 source) ALLERGIES NOT ON FILE; Translations: [ALLERGIES NOT ON FILE] Propensity to adverse reactions (disorder) [facility] 2 Repository Medications Current Medications Medication Drug Class(es) Dates Sig (Normalized) Sig (Original) estradiol 0.1 mg/ml vaginal cream (9 sources) Estrogen Start: 07-29-2020 End: 07-31-2021 Estradiol (Estrace) 0.01 % (0.1 mg/gram) cream Active 0 VAGINAL .COMPLEX 42.5 July 31, 2021 5:07pm use fingertip amount or 1-2g every night vaginally x 2 weeks, then 1-3x weekly for maintenance Start: 06-18-2017 End: 09-01-2017 Estradiol (Estrace) 0.01 % ( 0.1 mg/gram) cream Discontinued 0 VAGINAL .COMPLEX 42.5 June 18, 2017 1:00am September 01, 2017 11:00am use fingertip amount or 1-2g every night vaginally x 2 weeks, then 1-3x weekly for maintenance levothyroxine sodium 0.1 mg oral tablet (3 sources) l-Thyroxine Start: 05-12-2017 take 100 ug by mouth once daily Levothyroxine Active 100 MCG PO DAILY May 12, 2017 1:00am Completed/Discontinued Medications Medication Drug Class(es) Dates Sig (Normalized) Sig (Original) amoxicillin 500 mg oral capsule (3 sources) Penicillin-class Antibacterial Start: 09-01-2017 End: 08-17-2018 take 500 mg by mouth twice daily Amoxicillin Discontinued 500 MG PO TWICE A DAY September 01, 2017 12:00am August 17, 2018 8:08am calcium carbonate 1250 mg chewable tablet (3 sources) Start: 06-18-2017 End: 08-17-2018 take 1 tablet by mouth twice daily Calcium Carbonate (Calci-Chew) 500 mg calcium (1,250 mg) tablet,chewable Discontinued 500 MG PO TWICE A DAY June 18, 2017 1:00am August 17, 2018 8:08am cetirizine hydrochloride 10 mg oral tablet (3 sources) Histamine-1 Receptor Antagonist Start: 09-01-2017 End: 08-17-2018 take 1 tablet by mouth once daily Cetirizine (Zyrtec) 10 mg tablet Discontinued 10 MG PO daily September 01, 2017 12:00am August 17, 2018 8:08am fluocinonide 0.5 mg/ml topical cream (3 sources) Corticosteroid Start: 06-18-2017 End: 09-01-2017 Fluocinonide Discontinued 1 APPLIC TOPICAL TWICE A DAY June 18, 2017 1:00am September 01, 2017 11:00am ibuprofen 800 mg oral tablet (3 sources) Nonsteroidal Anti-inflammatory Drug Start: 05-13-2017 End: 06-18-2017 take 800 mg by mouth three times daily as needed Ibuprofen Discontinued 800 MG PO 3 TIMES DAILY NEEDED 60 May 13, 2017 1:00am June 18, 2017 11:58am metroNIDAZOLE 500 mg oral tablet (3 sources) Nitroimidazole Antimicrobial Start: 06-19-2017 End: 06-26-2017 take 1 tablet by mouth twice daily Metronidazole (Flagyl) 500 mg tablet Discontinued 500 MG PO TWICE A DAY 14 7 June 19, 2017 1:00am June 26, 2017 1:08am Multivitamin (Daily Multi-Vitamin) tablet (3 sources) Start: 06-18-2017 End: 07-27-2019 take 1 tablet by mouth once daily in the morning Multivitamin (Daily Multi-Vitamin) tablet Discontinued 1 TABLET PO EVERY MORNING June 18, 2017 1:00am July 27, 2019 2:11pm progesterone 200 mg oral capsule (3 sources) Progesterone Start: 06-18-2017 End: 09-01-2017 take 200 mg by mouth once Progesterone Micronized Discontinued 200 MG PO ONCE June 18, 2017 1:00am September 01, 2017 11:00am 24 hr venlafaxine 75 mg extended release oral capsule (3 sources) Serotonin and Norepinephrine Reuptake Inhibitor Start: 07-31-2021 End: 08-03-2022 take 1 capsule by mouth once daily Venlafaxine (Effexor Xr) 75 mg capsule,extended release 24hr Discontinued 75 MG PO DAILY July 31, 2021 1:00am August 03, 2022 3:00pm Problems Active Problems Problem Classification Problem Date Documented Date Episodic/Chronic Anxiety disorders (3 sources) Mixed anxiety and depressive disorder; Translations: [Anxiety disorder, unspecified] 07-31-2021 Chronic Disorders of lipid metabolism (3 sources) Hyperlipidemia, unspecified; Translations: [Hyperlipidemia] Onset: 12-07-2023 Chronic Menopausal disorders (3 sources) Postmenopausal bleeding; Translations: [Postmenopausal bleeding] 07-29-2020 Chronic Other female genital disorders (3 sources) Disorder of female genital system; Translations: [Unspecified condition associated with female genital organs and menstrual cycle] 06-20-2017 Episodic Other screening for suspected conditions (not mental disorders or infectious disease) (2 sources) Encounter for screening mammogram for malignant neoplasm of breast; Translations: [Encounter for screening for lipoid disorders] Onset: 12-01-2023 Episodic Thyroid disorders (4 sources) Hypothyroidism; Translations: [Hypothyroidism, unspecified] Onset: 02-23-2023 09-01-2017 Chronic Unclassified (1 source) Low back pain, unspecified; Translations: [Low back pain, unspecified] Onset: 11-18-2023 Past or Other Problems Problem Classification Problem Date Documented Da te Episodic/Chronic Unclassified (3 sources) Endometrial thickening on ultra sound 07-29-2020 Results Test Name Value Interpretation Reference Range 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: No Is patient in pain?: No Allergies tramadol Adverse Reaction (Verified 12/08/23 14:54) Vomiting Medications ???Medication ???Instructions ???Recorded ???Confirmed ???Type levothyroxine 125 mcg capsule 125 mcg PO DAILY 12/08/23 12/08/23 History Post menopausal: No Patient : No : No PFSH Medical History Melanoma Hot flashes Hypothyroidism Thickened endometrium Surgical History melanoma removed Status post dilatation and curettage Family History Father Lung cancer Mother Lung cancer Social History (Updated 12/08/23 @ 15:06 by Suellen Diaz) Smoking Status: Never smoker alcohol intake: current alcohol intake frequency: holidays/special occasions only substance use type: does not use caffeine: Yes what type of physical activity do you participate in: other details: pilates frequency: daily seatbelt use: always do you feel safe at home: Yes History 1 Elective abortions Hx Para 1 Spontaneous abortions Hx # Term Pregnancies Ectopic pregnancies Hx # Pregnancies Multiple births # of living children Past Pregnancies Del. Date Name GA/Weeks Outcome Route Bth Weight [facility] Encounter for routine gynecological examination Details: KODY TELLEZ is a 62 year old who presents for annual exam. She reports she has tried losing weight; feels that this is resistant no matter what she does. Last PAP: 08/04/2023 History of abnormal PAP: yes; ascus. Last mammogram: 07/2022 History of abnormal mammogram: none Colon cancer screening: Yes, colonoscopy; negative. Other preventative health care screenings: Dr. Bolton. ROS Const Constitutional: Denies chills, fatigue, fever(s), headache(s) or weight loss Eyes Eyes: Denies change in vision ENT ENT: Denies dizziness Resp Resp: Denies cough GI GI: Denies abdominal pain, constipation or nausea : Denies difficulty voiding, dysuria, hematuria, pelvic pain, prolapse symptoms, urinary incontinence, vaginal discharge, vaginal dryness, vaginal odor or vaginal pruritus Skin Skin/Breast: Denies alopecia, rash, breast mass, breast pain or breast skin changes Neuro Neuro: Denies dizziness Psych Psych: Denies anxiety or depression Endo Endo: Denies cold intolerance, excessive sweating or heat intolerance Exam Const General: cooperative, healthy appearing, comfortable, no acute distress, well developed and well groomed [facility] Head: normal to inspection and normocephalic Ears: hearing grossly normal bilaterally and external ears normal Nose: external nose normal Face and sinus: normal facial exam Neck Neck: normal visual inspection, full ROM and no lymphadenopathy Thyroid: thyroid normal Chest Chest palpation inspection: normal inspection of the chest Breast inspection: normal inspection of the breasts and normal inspection of the axillae Breast palpation: normal palpation of the breasts, normal palpation of the axillae and no axillary lymphadenopathy Resp Effort Inspection: normal respiratory effort GI Inspection: normal to inspection and non-distended Palpation: soft, no hepatosplenomegaly and no guarding General: bladder normal to palpation External Female Exam: normal external appearance, normal appearance of the urethra and no lesions Urethra: normal appearance of the urethra and normal palpation Speculum Exam - Vagina: normal appearance of the vagina and normal vaginal discharge Speculum Exam - Cervix: normal appearance of the cervix, no cervical discharge, no lesions and nontender Bimanual Exam- Vagina Uterus: normal bimanual exam, uterine size normal, bladder normal to palpation, No tender, uterine mobility normal, consistency normal, non-tender and no cervical motion tenderness Bimanual Exam- Adnexa, other: normal adnexae, no masses and non-tender Skin General: no rashes or lesions noted Neuro General: patient alert, moves all extremities and no focal motor deficits Extrem General: normal to inspect (more content not included)... Normal [facility] CT CARDIAC SCORING WO IV CON TRASTon 12-07-2023 CT CARDIAC SCORING WO IV CONTRAST Interpreted By: Reynaldo Adams, STUDY: CT CARDIAC SCORING WO IV CONTRAST; 12/07/2023 3:02 pm INDICATION: Signs/Symptoms:SCREENI NG. COMPARISON: Previous exam from 10/21/2021, at which time the calcium score was 0.. ACCESSION NUMBER(S): [id number] ORDERING CLINICIAN: FARZANEH WRIGHT TECHNIQUE: Using prospective ECG gating, CT scan of the coronary arteries was performed without intravenous contrast. Coronary calcium scoring was performed according to the method of Agatston. FINDINGS: The score and distribution of calcium in the coronary arteries is as follows: LM 47.94, LAD 0, LCx 0, RCA 0, Total 47.94 The visualized mid/lower ascending thoracic aorta, is normal in size, measuring 34 mm in diameter. The heart is normal in size. No pericardial effusion is present.Main pulmonary artery is normal in caliber. There is no evidence of lymphadenopathy or mass within the visualized mediastinum.The visualized esophagus is unremarkable. The visualized segments of the lungsare normally expanded. The visualized subdiaphragmatic structures demonstrate no remarkable findings. IMPRESSION: Coronary artery calcium score of 47.94 *. There has been mild but adverse interval change since the previous exam. *Coronary Artery Calcium Gated and Nongated Agatston score Score CHD Risk 0 Very low 1-99 Mildly increased 100-299 Moderately increased >300 Moderate to severely increased Chidi et al. JCCT 2016 (http://dx.doi.org/10. 1016/j.jcct.2016.11.00 3) MCCORMICK 10-Year CHD Risk with Coronary Artery Calcification can be calculated using link below [email or web address]://[email or web address]-nhlbi .org/MESACHDRisk/MesaR iskScore/RiskScore.asp x Mahi. JACC 2014 (http://dx.doi.org/10. 1016/j.j acc.2015.08.035) MACRO: None Signed by: Reynaldo Adams 12/14/2023 8:57 AM Dictation workstation: [id number] [facility] Basic Metabolic Profile (BMP )on 11-19-2023 BUN/CRE 19.6 RATIO Normal 10-20 [facility] Comment on above: Order Comment: Order Date: 11/17/23 Order Info: 0667-1 - BMP Order Info: [id number] - LIPID Order Info: 3 - TSH Order Info: 7 - T4F Performed By: #### L 501.9520, L500.2500, L500.4100, L506.0400 #### [facility] [address] [place], [address] CA,Total 9.1 mg/dL Normal 8.5-10.1 [facility] Comment on above: Order Comment: Order Date: 11/17/23 Order Info: 0667-1 - BMP Order Info: [id number] - LIPID Order Info: 3 - TSH Order Info: 7 - T4F Performed By: #### L 501.9520, L500.2500, L500.4100, L506.0400 #### [facility] [address] [place], [address] Chloride [Moles/Vol] 105 mmol/L Normal 98-107 [facility] Comment on above: Order Comment: Order Date: 11/17/23 Order Info: 0667-1 - BMP Order Info: [id number] - LIPID Order Info: 3 - TSH Order Info: 3027 - T4F Performed By: #### L 501.9520, L500.2500, L500.4100, L506.0400 #### [facility] [address] [place], [address] CO2 [Moles/Vol] 26.0 mmol/L Normal 21.0-32.0 [facility] Comment on above: Order Comment: Order Date: 11/17/23 Order Info: 666-05 - BMP Order Info: [id number] - LIPID Order Info: 3 - TSH Order Info: 7 - T4F Performed By: #### L 501.9520, L500.2500, L500.4100, L506.0400 #### [facility] [address] [place], [address] Creatinine [Mass/Vol] 0.82 mg/dL Normal 0.55-1.02 [facility] Comment on above: Order Comment: Order Date: 11/17/23 Order Info: 666-05 - BMP Order Info: - LIPID Order Info: 3015-07 - TSH Order Info: 7 - T4F Result Comment: The validity of the calculated GFR GFRAA in patients over 70 years has not been determined. Clinical correlation is essential. Performed By: #### L 501.9520, L500.2500, L500.4100, L506.0400 #### [facility] [address] [place], [address] EST GFR - AA 91 mL/min Normal >60 [facility] Comment on above: Order Comment: Order Date: 11/17/23 Order Info: 666-05 - BMP Order Info: 16050-8 - LIPID Order Info: 3015-3 - TSH Order Info: 302-7 - T4F Result Comment: Afri can Austrian GFR Calc Performed By: #### L 501.9520, L500.2500, L500.4100, L506.0400 #### [facility] [address] [place], [address] GAP 6 Normal 5-15 [facility] Comment on above: Order Comment: Order Date: 11/17/23 Order Info: 666-05 - BMP Order Info: - LIPID Order Info: 3 - TSH Order Info: 7 - T4F Performed By: #### L 501.9520, L500.2500, L500.4100, L506.0400 #### [facility] [address] [place], [address] GFR/1.73 sq M.predicted among non-blacks MDRD (S/P/Bld) [Vol rate/Area] 75 mL/min/{1.73_m2} Normal >60 [facility] Comment on above: Order Comment: Order Date: 11/17/23 Order Info: 666-05 - BMP Order Info: - LIPID Order Info: 3 - TSH Order Info: 3024-7 - T4F Result Comment: Non- GFR Calc Performed By: #### L 501.9520, L500.2500, L500.4100, L506.0400 #### [facility] [address] [place], [address] Glucose [Mass/Vol] 99 mg/dL Normal 74-106 [facility] Comment on above: Order Comment: Order Date: 11/17/23 Order Info: 666-05 - BMP Order Info: - LIPID Order Info: 3 - TSH Order Info: 30247 - T4F Performed By: #### L 501.9520, L500.2500, L500.4100, L506.0400 #### [facility] [address] [place], [address] Potassium [Moles/Vol] 3.8 mmol/L Normal 3.5-5.1 [facility] Comment on above: Order Comment: Order Date: 11/17/23 Order Info: 666-05 - BMP Order Info: - LIPID Order Info: 3 - TSH Order Info: 3024-7 - T4F Performed By: #### L 501.9520, L500.2500, L500.4100, L506.0400 #### [facility] [address] [place], [address] Sodium [Moles/Vol] 137 mmol/L Normal 136-145 [facility] Comment on above: Order Comment: Order Date: 11/17/23 Order Info: 666-05 - BMP Order Info: - LIPID Order Info: 3 - TSH Order Info: 7 - T4F Performed By: #### L 501.9520, L500.2500, L500.4100, L506.0400 #### [facility] [address] [place], [address] Urea nitrogen [Mass/Vol] 16 mg/dL Normal 7-18 [facility] Comment on above: Order Comment: Order Date: 11/17/23 Order Info: 666-05 - BMP Order Info: - LIPID Order Info: 3015-07 - TSH Order Info: 7 - T4F Performed By: #### L 501.9520, L500.2500, L500.4100, L506.0400 #### [facility] [address] [place], [address] Lipid Profileon 11-19-2023 Cholesterol [Mass/Vol] 302 mg/dL High 200 [facility] Comment on above: Order Comment: Order Date: 11/17/23 Order Info: 666-05 - BMP Order Info: 34775-4 - LIPID Order Info: 3 - TSH Order Info: 3024-7 - T4F Result Comment: <200 mg/dL Desirable 200-240 mg/dL Borderline >240 mg/dL High Risk Performed By: #### L 501.9520, L500.2500, L500.4100, L506.0400 #### [facility] [address] [place], [address] Cholesterol in HDL [Mass/Vol] 66 mg/dL Normal [facility] Comment on above: Order Comment: Order Date: 11/17/23 Order Info: 666-05 - BMP Order Info: - LIPID Order Info: 3015-07 - TSH Order Info: 3023-11 - T4F Result Comment: The drugs N-Acetylcysteine and Metamizole may falsely depress this assay. Reference Range HDL <40 mg/dL Low HDL Cholesterol HDL >or= 60 mg/dL High HDL Cholesterol Performed By: #### L 501.9520, L500.2500, L500.4100, L506.0400 #### [facility] [address] [place], [address] Cholesterol in LDL [Mass/Vol] 192 mg/dL High 0-130 [facility] Comment on above: Order Comment: Order Date: 11/17/23 Order Info: 666-05 - BMP Order Info: - LIPID Order Info: 3015-07 - TSH Order Info: 3023-11 - T4F Performed By: #### L 501.9520, L500.2500, L500.4100, L506.0400 #### [facility] [address] [place], [address] Cholesterol in VLDL [Mass/Vol] 44 mg/dL High 5-40 [facility] Comment on above: Order Comment: Order Date: 11/17/23 Order Info: 666-05 - BMP Order Info: - LIPID Order Info: 3015-07 - TSH Order Info: 3023-11 T4F Performed By: #### L 501.9520, L500.2500, L500.4100, L506.0400 #### [facility] [address] [place], [address] Triglyceride [Mass/Vol] 222 mg/dL High [facility] Comment on above: Order Comment: Order Date: 11/17/23 Order Info: 666-05 - BMP Order Info: - LIPID Order Info: 3 - TSH Order Info: 7 - T4F Result Comment: The drugs N-Acetylcysteine and Metamizole may falsely depress this assay. Serum Triglycerides Reference Interval Normal <150 mg/dL Borderline high 150 - 199 mg/dL High 200 - 499 mg/dL Very High > or = 500 mg/dL Performed By: #### L 501.9520, L500.2500, L500.4100, L506.0400 #### [facility] [address] [place], [address] T4 Free Directon 11-19-2023 T4 FREE DIRECT 1.45 ng/dL Normal 0.76-1.46 [facility] Comment on above: Order Comment: Order Date: 11/17/23 Order Info: 666-05 - BMP Order Info: [id number] - LIPID Order Info: 3015-3 - TSH Order Info: 3023-11 - T4F Performed By: #### L 501.9520, L500.2500, L500.4100, L506.0400 #### [facility] [address] [place], [address] Thyroid Stim Hormone (TSH)on 11-19-2023 TSH 0.75 uIU/mL Normal 0.358-3.74 [facility] Comment on above: Order Comment: Order Date: 11/17/23 Order Info: 666-05 - BMP Order Info: - LIPID Order Info: 63 - TSH Order Info: 7 - T4F Performed By: #### L 501.9520, L500.2500, L500.4100, L506.0400 #### [facility] [address] [place], [address] L/S Spine Min 4 Viewson 10-22 L/S Spine Min 4 Views [facility] [address] [place] [address] L/S Spine Min 4 Views MR#: [id number] Acct: [id number] Name: KODY TELLEZ Rep #: [id number] : 1960 F 62 From: Ezekiel jain MD PCP: Dr. Farzaneh Wright MD Status: REG CLI Study: L/S Spine Min 4 Views Date of Exam: 11/09/23 Exam# [id number] Ordering Dr: Farzaneh Wright [id number] STUDY: X-RAY - LUMBAR SPINE REASON FOR EXAM: Female, 62 years old. LUMBAGO TECHNIQUE: 4 view(s) of the lumbar spine were obtained. COMPARISON: Lumbar spine x-ray dated August 18, 2022 FINDINGS: Normal lumbar lordosis. Minimal levoscoliosis is present. There is a normal alignment of the vertebrae. The L3-L4 disc space is moderately narrowed. Mild disc space narrowing is present at L2-L3 and L4-L5. Mild multilevel endplate spurring is also present. No visualized fractures or compression deformities. The soft tissue structures are unremarkable. RAD/L/S Spine Min 4 Views IMPRESSION: Degenerative changes of the spine, as detailed above. Electronically Signed: Ezekiel Brand MD at 13:07 EDT , CC: Dr. Farzaneh Wright MD Business Ethics Professor: Signed Normal [facility] Basic Metabolic Profile (BMP )on 02-18-2023 BUN/CRE 14.0 RATIO Normal 10-20 [facility] Comment on above: Order Comment: Order Date: 02/18/23 Order Info: 0667-1 - BMP Order Info: 3016-3 - TSH Order Info: 3024-7 - T4F Performed By: #### L 500.2500 #### [facility] [place], [address] CA,Total 9.0 mg/dL Normal 8.5-10.1 [facility] Comment on above: Order Comment: Order Date: 02/18/23 Order Info: 666- - BMP Order Info: 3016-3 - TSH Order Info: 3024-7 - T4F Performed By: #### L 500.2500 #### [facility] [address] [place], [place], [address] ([phone]) Chloride [Moles/Vol] 103 mmol/L Normal 98-107 [facility] Comment on above: Order Comment: Order Date: 02/18/23 Order Info: 666- - BMP Order Info: 3016-3 - TSH Order Info: 3024-7 - T4F Performed By: #### L 500.2500 #### [facility] [address] [place], [address] CO2 [Moles/Vol] 28.0 mmol/L Normal 21.0-32.0 [facility] Comment on above: Order Comment: Order Date: 02/18/23 Order Info: 666-05 - BMP Order Info: 6-3 - TSH Order Info: 3024-7 - T4F Performed By: #### L 500.2500 #### [facility] [address] [place], [place], [address] ([phone]) Creatinine [Mass/Vol] 0.78 mg/dL Normal 0.55-1.02 [facility] Comment on above: Order Comment: Order Date: 02/18/23 Order Info: 666-05 - BMP Order Info: 6-3 - TSH Order Info: 3024-7 - T4F Result Comment: The validity of the calculated GFR GFRAA in patients over 70 years has not been determined. Clinical correlation is essential. Performed By: #### L 500.2500 #### [facility] [address] [place], [address] EST GFR - AA 96 mL/min Normal >60 [facility] Comment on above: Order Comment: Order Date: 02/18/23 Order Info: 666-05 - BMP Order Info: 3016-3 - TSH Order Info: 3024-7 - T4F Result Comment: Afri can Austrian GFR Calc Performed By: #### L 500.2500 #### [facility] [address] [place], [address] GAP 5 Normal 5-15 [facility] Comment on above: Order Comment: Order Date: 02/18/23 Order Info: 06 - BMP Order Info: 3016-3 - TSH Order Info: 3024-7 - T4F Performed By: #### L 500.2500 #### [facility] [address] [place], [address] GFR/1.73 sq M.predicted among non-blacks MDRD (S/P/Bld) [Vol rate/Area] 79 mL/min/{1.73_m2} Normal >60 [facility] Comment on above: Order Comment: Order Date: 02/18/23 Order Info: 666-05 - BMP Order Info: 3016-3 - TSH Order Info: 3024-7 - T4F Result Comment: Non- GFR Calc Performed By: #### L 500.2500 #### [facility] [address] [place], [address] Glucose [Mass/Vol] 82 mg/dL Normal 74-106 [facility] Comment on above: Order Comment: Order Date: 02/18/23 Order Info: 666-05 - BMP Order Info: 3016-3 - TSH Order Info: 3024-7 - T4F Performed By: #### L 500.2500 #### [facility] [address] [place], [address] Potassium [Moles/Vol] 3.9 mmol/L Normal 3.5-5.1 [facility] Comment on above: Order Comment: Order Date: 02/18/23 Order Info: 666-05 - BMP Order Info: 3016-3 - TSH Order Info: 3024-7 - T4F Performed By: #### L 500.2500 #### [facility] [address] [place], [address] Sodium [Moles/Vol] 136 mmol/L Normal 136-145 [facility] Comment on above: Order Comment: Order Date: 02/18/23 Order Info: 0667-1 - BMP Order Info: 3016-3 - TSH Order Info: 3024-7 - T4F Performed By: #### L 500.2500 #### [facility] [address] [place], [place], [address] Urea nitrogen [Mass/Vol] 11 mg/dL Normal 7-18 [facility] Comment on above: Order Comment: Order Date: 02/18/23 Order Info: 666-05 - BMP Order Info: 3016-3 - TSH Order Info: 3024-7 - T4F Performed By: #### L 500.2500 #### [facility] [address] [place] [place], [address] T4 Free Directon 02-18-2023 T4 FREE DIRECT 1.27 ng/dL Normal 0.76-1.46 [facility] Comment on above: Order Comment: Order Date: 02/18/23 Order Info: 0667- - BMP Order Info: 3016-3 - TSH Order Info: 3024-7 - T4F Performed By: #### L 506.0400, L501.9520 #### [facility] [address] [place], [address] Thyroid Stim Hormone (TSH)on 02-18-2023 TSH 6.53 uIU/mL High 0.358-3.74 [facility] Comment on above: Order Comment: Order Date: 02/18/23 Order Info: 0667-1 - BMP Order Info: 3016-3 - TSH Order Info: 3024-7 - T4F Performed By: #### L 506.0400, L501.9520 #### [facility] [address] [place], [address] Cervical or vagninal specime n microscopic examination by cytology stain (reported asOrdered By: Dr. Perkins on 08-03-2022 Cytology report Cyto stain Doc (Cvx/Vag) Comment . [facility] Comment on above: The Pap smear is a s creening test designed to aid in thedetection of premalignant and malignant conditions of theuterine cervix. It is not a diagnostic procedure andshould not be used as the sole means of detecting cervicalcancer. Both false-positive and false-negative reports dooccur. Detection in cervical specim en of any of human papilloma virus (HPV) 16, 18, 31, 33,Ordered By: Dr. Perkins on 08-03-2022 HPV 16+18+31+33+35+39+45+5 1+52+56+58+59+66+68 DNA Probe+sig amp Ql (Cvx) Negative Negative [facility] Comment on above: This nucleic acid am plification test detects fourteen high- risk HPV types (16,18,31,33,35,39,45,51,52,56,58,59,66,68)without differentiation. Laboratory - CytologyOrdered By: Dr. Perkins on 08-03-2022 Tinning Machine Set Up Operator Cyto stain Nom (Cvx/Vag) [ID] Comment . [facility] Comment on above: Smith roach, Support Technician (ASCP) Laboratory - Miscellaneous t estsOrdered By: Dr. Perkins on 08-03-2022 Service comment (Unsp spec) [Interp] Comment . [facility] Comment on above: This liquid based Th inPrep(R) pap test was screened withthe use of an image guided system. Service comment (Unsp spec) [Interp] . . [facility] Liquid-based cerv Pap + CT/G C by BRYAN w reflex to high-risk HPV for ASCUSOrdered By: Dr. Perkins on 08-03-2022 Cytology report Cyto stain.thin prep Doc (Cvx/Vag) Comment . [facility] Comment on above: Criteria not met, HP V Genotype not performed.Performed at: - [address] [id number] Director: Linda Villalba MD, Phone: [phone] at: =[address] [id number] Director: Linda Villalba MD, Phone: [phone] No Panel InformationOrdered By: Dr. Perkins on 08-03-2022 Pathology report final diagnosis Narrative Comment . [facility] Comment on above: NEGATIVE FOR INTRAEP ITHELIAL LESION OR MALIGNANCY. CT CARDIAC SCORINGon 022 CT CARDIAC SCORING Patient Name: KODY TELLEZ STUDY: CT CARDIAC SCORING; 10/21/2021 8:35 am INDICATION: Other hyperlipidemia. COMPARISON: None. ACCESSION NUMBER(S): [id number] ORDERING CLINICIAN: FARZANEH WRIGHT TECHNIQUE: Using prospective ECG gating, CT scan of the coronary arteries was performed without intravenous contrast. Coronary calcium scoring was performed according to the method of Agatston. FINDINGS: The score and distribution of calcium in the coronary arteries is as follows: LM 0 LAD 0 LCx 0 RCA 0 Total 0 The visualized mid/lower ascending thoracic aorta measures 3.2 cm in diameter. The heart is normal in size. No pericardial effusion is present. No gross evidence of mediastinal or hilar lymphadenopathy or masses is identified. The visualized segments of the lungs are hyperinflated. Calcified granuloma in the right upper lobe. The visualized subdiaphragmatic structures appear intact. IMPRESSION: 1. Coronary artery calcium score of 0*. *Coronary artery calcium scoring may be helpful in predicting the risk for future coronary heart disease events. According to the [employer] Clinical Expert Consensus Task Force, such testing provides important prognostic information in patients with more than one coronary heart disease risk factor. The coronary artery calcium score correlates with the annual risk of a non-fatal myocardial infarction or coronary heart disease . Coronary artery score Annual Risk 0-99 0.4% 100-399 1.3% >400 2.4% These three breakpoints correspond to lower, intermediate and high risk states for future coronary events. Such information should be used, along with appropriate clinical judgment, to make decisions regarding the intensity of risk factor management strategies to treat blood lipids and to modify other non-lipid coronary risk factors. Reference: [place] P et al. Circulation. 2007; 115:402-426 Electronically signed by: ANGELES GARCIA MD [facility] Vital Signs Date Time Vital Sign Value Performing Clinician Heri ludwig 08-03-2022 15:00-0400 Body height 172.[address] Addi Wright Work Phone: [facility] 08-03-2022 14:58-0400 Body mass index (BMI) [Ratio] 25.3 kg/m2 Dr. Addi Wright Work Phone: [facility] 08-03-2022 14:58-0400 Body weight 75.[address] Addi Wright Work Phone: [facility] 08-03-2022 14:58-0400 Diastolic blood pressure 71 mm[Hg] Dr. Addi Wright Work Phone: [facility] 08-03-2022 14:58-0400 Systolic blood pressure 112 mm[Hg] Dr. Addi Wright Work Phone: [facility] Encounters Encounter Date Encounter Type Care Provider Facility Start: 12-08-2023 Encounter for gynecological examination (general) (routine) without abnormal findings Shelly Anand [facility] Start: 12-08-2023 End: 12-08-2023 ambulatory Farzaneh Wright Facility:[facility] Start: 12-07-2023 End: 12-07-2023 Subsequent hospital visit by physician [address] Comment on above: Hyperlipidemia, unsp ecified Start: 12-07-2023 End: 12-07-2023 [facility] Start: 11-22-2023 ambulatory Farzaneh Wright Faci lity:[facility] Start: 11-19-2023 End: 11-19-2023 [facility] Start: 11-09-2023 End: 11-09-2023 ambulatory Farzaneh Wright Facility:[facility] Start: 02-18-2023 End: 02-18-2023 ambulatory Farzaneh Wright Facility:[facility] Start: 08-18-2022 End: 08-18-[address] Addi Wright Work Phone: [facility] Work Phone: Start: 08-18-2022 End: 08-18-[address] [facility] Start: 08-03-2022 End: 08-03-[address] Addi Wright Work Phone: [facility] Start: 08-03-2022 End: 08-03-[address] Addi Wright Work Phone: [facility] Work Phone: Start: 08-03-2022 End: 08-03-[address] Addi Wright Work Phone: [facility] Start: 12-08-2021 End: 12-08-2021 Patient encounter procedure [facility] Start: 07-31-2021 Patient encounter status [facility] Procedures Date Procedure Procedure Detail Performing Clinician Start: 08-18-2022 Complete x-ray serie s of lumbar spine with bending views Dr. Addi Wright Work Phone: Start: 08-18-2022 Plain x-ray of pelvi s and lower extremity Dr. Addi Wright Work Phone: Start: 08-03-2022 Screening mammography Sharon Wright Work Phone: Start: 12-08-2021 Radiography of ankle Start: 12-08-2021 X-ray of both feet Plan of Treatment Date Care Activity Detail Author Start: 01-23-2024 Influenza vaccination Influenz a Vaccine (#1) [facility] Start: 01-22-2023 COVID-19 Vaccine ( season) COVID-19 Vaccine ( season) [facility] Start: 08-03-2022 Liquid based cervica l cytology screening [facility] Start: 2021 RSV patient s and/or patients aged 60+ years (1 - 1-dose 60+ series) RSV patients and/or patients aged 60+ years (1 - 1-dose 60+ series) [facility] Start: 12-20-2011 Zoster Vaccines (1 of 2) Zoste r Vaccines (1 of 2) [facility] Start: 2001 Screening for malign ant neoplasm of breast Mammogram [facility] Start: 12-20-1983 DTaP/Tdap/Td Vaccine s (1 - Tdap) DTaP/Tdap/Td Vaccines (1 - Tdap) [facility] Start: 1982 Screening for malign ant neoplasm of cervix [facility] Start: 12-20-1979 Hepatitis C screening Hepatitis C Sc reening [facility] Start: 1962 MMR Vaccines (1 of 1 - Standard series) MMR Vaccines (1 of 1 - Standard series) [facility] Start: 1961 HIV screening HIV Screening [facility] Start: 1961 Lipid panel Lipid Panel [facility] Start: 1961 Screening for malign ant neoplasm of colon [facility] Start: 1961 Yearly Adult Physical Yearly Adult P hysical [facility] End: 12-07-2023 CT for calcium scoring WO contrast and CTA W contrast IV Heart and coronary arteries [facility] Service Area Work Phone: Comment on above: Once for 1 Occurrenc es starting 12/07/2023 until 12/07/2023 Path report.final Dx Spec [facility] Payers Date Payer Category Payer Self-pay [id number] 2022 Private Health Insurance [employer] [id number] 2022-Present P [id number] [place] [address] [id number] 2022 Unknown [id number] 2013 Unknown [id number] 1961 Unknown [id number] Unknown [id number] Unknown [id number] Unknown [id number] Unknown [id number] Unknown [id number] Social History Date Type Detail Facility Start: 07-31-2021 End: 08-03-2022 Tobacco smoking status NHIS Unknown if ever smoked [facility] Start: 1960 Sex Assigned At Female [facility] Start: 1960 Sex assigned at Not on file [facility] Work Phone: Gender identity Not on file [facility] Work Phone: Start: 11-27-2023 End: 12-07-2023 Exposure to SARS-CoV-2 (event) Not sure [facility] Clinical Note 08-03-2022 Note Date & Type Note Facility 08-03-2022 Note [facility] Pap Smear Specimen Adequacy August 03, 2022 5:12pm Comment . Satisfactory for evaluation. Endocervical and/or squamous metaplasticcells (endocervical component) are present. Comment on above: Satisfactory for anand luation. Endocervical and/or squamous metaplasticcells (endocervical component) are present. Evaluation note Note Date & Type Note Facility Evaluation note No assessment information availa ble [facility] Work Phone: Evaluation note Note Date & Type Note Facility Evaluation note Diagnosis Onset Date Encounter for routine gyneco logical examination noneactive [facility] Work Phone: Evaluation note Note Date & Type Note Facility Evaluation note Diagnosis Hyperlipidemia, unspecified documented in this encounter [facility] Work Phone: Summary Purpose Family History Relationship Condition Age at Onset Recorded Date/T olesya father Malignant neoplasm of lung Unknown mother Malignant neoplasm of lung Unknown Advance Directives Advance Directive Response Recorded Date/ Time Living Will No May 12 017 9:41am Power of Frame Gate Mortiser Operator No May 12, 2017 9:41am Chief Complaint and Reason for Visit 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 Complaint 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) Reason for Visit Encounter for routin e gynecological examination Reason for Referral Specialty Diagnoses / Procedures Referred By Contac t Referred To Contact Radiology Diagnoses Hyperlipidemia, unspecified Procedures CT cardiac scoring wo IV contrast Farzaneh Wright MD [address] [place] [address] Referral ID Status Reason Start Date Expiration Date Visits Requested Visits Authorized [id number] Authorized Perform Procedure 11/23/2023 11/22/2024 1 1 Additional Source Comments INFORMATION SOURCE (unrecogn ized section and content) DATE CREATED AUTHOR 10/23/2021 [facility] DATE CREATED AUTHOR AUTHOR'S ORGANIZ ATION 12/12/2023 [facility] DATE CREATED AUTHOR AUTHOR'S ORGANIZ ATION 12/15/2023 [facility] Goals (unrecognized section and content) Goals may be documented in a n alternate sectionGoals may be documented in an alternate sectionGoals may be documented in an alternate section Care Teams (unrecognized sec tion and content) Team Status: Active Member Role Status Dates Dr. Addi Wright MD Family Provider Active Dr. Addi Wright MD Primary Care Provider Activ e Team Status: Inactive Member Role Status Dates Dr. Addi Wright MD Primary Care Provider, Refe rring Provider Active Dr. Michelle Perkins MD Attending Provider Active Team Status: Inactive Member Role Status Dates Dr. Addi Wright MD Primary Care Provider Activ e Dr. Michelle Perkins MD Attending Provider Active Team Status: Inactive Member Role Status Dates Dr. 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 [place] [address] Referral ID Status Reason Start Date Expiration Date Visits Requested Visits Authorized [id number] Authorized Perform Procedure 11/23/2023 11/22/2024 1 1 FOR RECORDS PERTAINING TO PATIENTS WHO ARE OR HAVE BEEN ENROLLED IN A CHEMICAL DEPENDENCY/SUBSTANCEABUSE PROGRAM, SOME INFORMATION MAY BE OMITTED. This clinical summary was aggregated from multiple sources. Caution should be exercised in using it in the provision of clinical care. This summary normalizes information from multiple sources, and as a consequence, information in this document may materially change the coding, format and clinical context of patient data. In addition, data may be omitted in some cases. CLINICAL DECISIONS SHOULD BE BASED ON THE PRIMARY CLINICAL RECORDS. [employer] provides no warranty or guarantee of the accuracy or completeness of information in this document.
[2025-02-08 11:00] LABS: AST(SGOT) 24 U/L (<=31); Alanine Aminotransfer ALT/SGPT 16 U/L (<=34); Albumin, Serum 3.6 g/dL (3.4-4.8); Alkaline Phosphatase 68 U/L (35-104); Anion Gap 11 (5-15); BUN 13 mg/dL (4-19); BUN/Creat Ratio 17.2 RATIO (10-20); Calcium,Total 9.2 mg/dL (7.6-11.0); Carbon Dioxide 23.4 mmol/L (21.0-32.0); Chloride 103 mmol/L (98-108); Cholesterol 302 mg/dL (<=200); Globulin 3.0 g/dL (2.2-4.2); Glucose 93 mg/dL (70-99); Low Density Lipoprotein Calc. 198 mg/dL; Potassium 4.0 mmol/L (3.3-5.1); Triglycerides 165 mg/dL; Very Low Density Lipoprotein 33 mg/dL (5-40); cholesterol:hdl ratio screen 4.27
== END | disposition home or self-care (01) ==
LOC: MTLAB 08:23
PROVIDERS: PCP Family Medicine; Referring Provider Family Medicine; Visit Provider Family Medicine
DX: E78.5 Hyperlipidemia, unspecified (principal); E03.9 Hypothyroidism, unspecified
CPT/HCPCS: 36415; 80053; 80061; 84439; 84443

== ENCOUNTER → 2025-02-20 | Outpatient (CLI) | payer OTHER, SELFPAY ==
--- NOTE | 2025-02-20 16:15 | BI_ITS ---
EXAM: SCRN MAMM (CAD)W/MEDHAT BILAT DATE: 02/20/2025 CLINICAL HISTORY: F, Age 64 y/o , SCREEN FOR BREAST CANCER Routine screening TECHNIQUE: Procedure Code: [id number] Modality: MG Procedure: SCRN MAMM (CAD)W/MEDHAT BILAT COMPARISON: Prior exam(s) dated 08/03/2022. FINDINGS: TISSUE DENSITY: There are scattered areas of fibroglandular density. Bilateral Breast Mammographic Findings: No significant masses, calcifications or other abnormalities are identified. No interval change BI/SCRN MAMM (CAD)W/MEDHAT BILAT IMPRESSION: Stable screening mammogram OVERALL FINAL ASSESSMENT BI-RADS 1: NEGATIVE. RECOMMENDATION: Routine annual follow-up in 1 Year Additional Recommendation none A letter with findings and recommendations will be mailed to the patient. Reading Location: [id number]
== END | disposition home or self-care (01) ==
LOC: OPBI 15:32
PROVIDERS: PCP Family Medicine; Referring Provider Nurse Practitioner Family; Visit Provider Nurse Practitioner Family
DX: Z12.31 Encounter for screening mammogram for malignant neoplasm of breast (principal)
CPT/HCPCS: 77063; 77067